=== PATIENT | male | born 1980 | race Native Hawaiian/Other Pacific Islander ===

== ENCOUNTER → 2019-12-12 | Day surgery (SDC) | payer OTHER ==
[~2019-12-12] VITALS: Ht 177.8 cm; Wt 85.3 kg
[~2019-12-12] MED LIST: HYDROCODON-ACE1 EAC7 PO
--- NOTE | ~2019-12-12 | H ---
[facility] [place] [address] HISTORY AND PHYSICAL Name: ANNIA PANCHAL Room #: PRE [facility] M.R.#: [id number] Admission: Attend Phys: Riky Morgan MD Discharge: Date of : 84 Report #: [id number] THIS REPORT FOR: cc: [facility] - Family physician unknown FAM - Family physician unknown Riky Morgan MD ~ CC: [facility] unknown Riky Morgan DATE OF SERVICE: 12/12/2019 PREOPERATIVE DIAGNOSIS: Painful left inguinal hernia. HISTORY OF PRESENT ILLNESS: The patient is a 39-year-old who has had pain in the left groin for the last 3 weeks, has been getting worse and worse. Even has some difficulty with walking. The patient is very active, athletic, exercises a lot. Recently, he has had to stop his exercises, mainly lifting weights and using his lower body because of the pain. A week ago, he noticed a lump in the left groin. In the morning, it goes down and flat. With time it gets protruded again. No nausea, no vomiting, no cough, no sneezing, no straining with bowel movement or urination. Younger brother had a large hernia that was repaired 6 years ago. The patient is found to have a left inguinal hernia, is recommended to have this repaired since he is quite symptomatic. PAST MEDICAL HISTORY: No heart disease, no high blood pressure, no diabetes. No liver disease, no kidney disease. No lung disease. No bleeding disorder. No history of blood clot. PAST SURGICAL HISTORY: He had knee surgery with the scope 2 years ago for meniscus tear. MEDICATIONS: He is not on any medication. ALLERGIES: Does not have any allergies. HE DID HAVE SOME REACTION TO THE ANESTHETIC FOR HIS KNEE SURGERY. He does not know what it was exactly. FAMILY HISTORY: Mother had ovarian cancer. SOCIAL HISTORY: The patient works in [employer]. He does not smoke. The patient drinks once a week. REVIEW OF SYSTEMS: No chest pain, shortness of breath, palpitation. No numbness or weakness. PHYSICAL EXAMINATION: GENERAL: The patient is well-nourished male in no acute distress. [facility] [address] [place] [address] HISTORY AND PHYSICAL Name: ANNIA PANCHAL Room #: [facility] M.R.#: [id number] Admission: Attend Phys: Riky Morgan MD Discharge: Date of : 84 Report #: [id number] HEENT: Pupils react to light. Extraocular muscles are intact. NECK: Soft and supple. Oropharynx clear. LUNGS: Clear to auscultation. HEART: Regular rate and rhythm. No murmur or gallop. ABDOMEN: Soft, nondistended, nontender. No mass, guarding or rigidity. The patient does have a moderate-sized left inguinal hernia, mildly tender to palpation. It is reducible. GENITALIA: Testicles are normal. The patient has vitiligo on the scrotum. EXTREMITIES: No cyanosis, clubbing or edema. NEUROLOGIC: Motor exam, sensory exams normal. IMPRESSION: The patient is a 39-year-old with a left inguinal hernia that has been causing him quite a bit of pain, particularly over the last week. The patient is recommended to have the hernia repair. Procedure was discussed. The patient understands the laparoscopic approach, use of mesh. Risk of bleeding, infection and mesh infection was discussed. The patient understands the risk and wants to proceed. By: [id number] Riky Morgan MD /nt
--- NOTE | ~2019-12-12 | O ---
[facility] [place] [address] OPERATIVE REPORT Name: ANNIA PANCHAL Room #: REG [facility]..#: [id number] Admission: 12/12/19 Attend Phys: Riky Morgan MD Discharge: Date of : 84 Report #: [id number] THIS REPORT FOR: cc: [facility] - [facility] family physician/PCP [facility] - [facility] family physician/PCP Riky Morgan MD ~ CC: [facility] physician/PCP Riky Morgan DATE OF SERVICE: 12/12/2019 PREOPERATIVE DIAGNOSIS: Painful left inguinal hernia. POSTOPERATIVE DIAGNOSIS: Painful left indirect inguinal hernia. PROCEDURE PERFORMED: Laparoscopic properitoneal repair of left indirect inguinal hernia with large 3DMax lightweight mesh. SURGEON: Riky Morgan MD ANESTHESIA: General anesthesia. COMPLICATIONS: None. ESTIMATED BLOOD LOSS: 2 mL. PROCEDURE NOTE: With the patient under general anesthesia, the abdomen was prepped and draped in sterile fashion. The patient did receive preoperative IV antibiotic and a Crabtree catheter was placed preoperatively. A 2 cm incision was made adjacent to the umbilicus on the left side. The fascia over the left rectus muscle was identified. The anterior fascia was incised transversely. The muscle was spread and the space between the muscle and the posterior fascia was bluntly dissected inferiorly. Origin balloon trocar was placed through the same space. CO2 was placed. The pressure setting was kept at 12. A 5 mm trocar was then placed in the properitoneal space under visualization. This is about 2 inches below the umbilicus. Dissection was then performed opening the properitoneal space out. The pubic bone was identified. This dissection was carried all the way across the midline to the right side. A second 5 mm trocar was placed about an inch and a half below the initial 5 mm trocar slightly right of the abdomen. Dissection was then carried out over the tissue lateral to the epigastric vessel. The properitoneal space was opened up. The posterior fascia did come down further than typical. Once this fascia was opened up, the hernia sac was identified in the properitoneal space. Hernia sac was isolated from the overlying cord. Hernia sac was then freed from the underlying cord structure and brought out of the internal ring. The indirect hernia sac was completely reduced. There was an opening made in the hernia sac, which was pretty thin. [facility] [address] [place] [address] OPERATIVE REPORT Name: ANNIA PANCHAL Room #: [facility] M..#: [id number] Admission: 12/12/19 Attend Phys: Riky Morgan MD Discharge: Date of : 84 Report #: [id number] The inside of the abdomen was seen. The hernia sac was allowed to fold on itself after it was brought down. A large size 3DMax lightweight mesh was then placed. This was placed through the 11 mm trocar. This was then opened in the properitoneal space and then positioned in the proper position. The mesh is placed lateral to the internal ring by about 2 inches. This also covered the floor of the inguinal canal. This is tucked underneath the pubic bone. The mesh was tacked laterally with SorbaFix, inferomedially to Aldair's ligament with SorbaFix and then superiorly medially to the rectus muscle. The mesh seated well. The hernia sac was then found. Again, the hernia sac was brought medial to the mesh and the hernia sac was folded down to close the opening in the hernia sac. The CO2 was then evacuated. CO2 was released from the 5 mm trocar. Once this was done, the 5 mm trocar was then removed. The 11 mm balloon trocar was removed. The fascia defect over the rectus muscle was closed with [id number] 0 Vicryl and single interrupted 0 Vicryl. Skin was irrigated with the rest of the local anesthetic and then closed with 5-0 PDS, Steri-Strip, Band-Aids applied. The patient tolerated the procedure well. By: [id number] Riky Morgan MD /nt
[2019-12-12 10:51] VITALS: BP 137/84
[2019-12-12 14:02] VITALS: BP 137/84
== END | disposition home or self-care (01) ==
LOC: OR 12-11 09:41
DX: K40.90 Unilateral inguinal hernia, without obstruction or gangrene, not specified as recurrent (principal); Z98.890 Other specified postprocedural states; Z87.891 Personal history of nicotine dependence
CPT/HCPCS: 50010; 50101; 50249; 50411; 50455; 50507; 50555; 50848; 53065; 53307; 56525; 56526; 62110; 62900; 70005